=== PATIENT | male | born 1970 | race Caucasian/White ===

== ENCOUNTER 2016-07-11 13:22 | Inpatient (IN) ==
[2016-07-11] MEDS ORDERED: SODIUM CHLORIDE 0.9% 1,000 ML IV STA (14:43)
[2016-07-11 15:18] LABS: Apearance,Urine CLEAR (Clear); Bilirubin,Urine Negative (Negative); Blood, Urine Negative (Negative); Glucose,Urine (UA) Negative (Negative); Ketones,Urine Negative (Negative); Mucus,Urine Occasional /LPF (Occasional); Nitrite,Urine Negative (Negative); Protein,Urine 30 MG/DL; RBC,Urine 1 /HPF (0-4); Urine Color Yellow (Yellow); Urine Specific Gravity 1.017 (1.001-1.035); Urine Urobilinogen < 2.0 EU/DL (0.2-1.0); WBC,Urine 1 /HPF (0-6)
[2016-07-11 15:29] LABS: Basophils % 0.2 % (0.0-0.8); Eosinophils % 0.4 % (0.00-10.9); Hematocrit 42.8 VOL% (42.0-52.0); Hemoglobin 14.8 GM/DL (14.0-18.0); Immature Granulocytes % 0.3 %; Immature Granulocytes Absolute 0.03 #; Lymphocytes # 0.9 10*3/uL (1.4-4.0); Lymphocytes % 7.7 % (21.2-54.2); Mean Corpuscular HGB Conc 34.6 GM/DL (32-36); Mean Corpuscular Hemoglobin 29 PG (27-34); Mean Corpuscular Volume 84.6 FL (87-102); Mean Platelet Volume 10.2 FL (9.6-12.0); Monocytes # 1.1 10*3/uL (0.11-0.8); Monocytes % 10.1 % (1.7-12.7); Neutrophils # 9.1 10*3/uL (1.4-7.4); Neutrophils % 81.3 % (38.7-73.9); Platelet Count 266 T/CUMM (130-400); Red Blood Count 5.06 MC/CUMM (3.8-5.5); Red Cell Distribution Width 11.9 % (9.3-17.3); White Blood Count 11.2 T/CUMM (4-12)
[2016-07-11 15:41] LABS: Albumin 3.5 G/DL (3.4-5.0); Bilirubin,Total 0.8 MG/DL (0.2-1.0); Calcium 8.7 MG/DL (8.5-10.1); Potassium 3.5 MMOL/L (3.5-5.1)
--- NOTE | 2016-07-11 16:38 | CT Report ---
CT abdomen pelvis w con Indication: Right lower quadrant pain and fever. CT ABDOMEN AND PELVIS WITH CONTRAST DLP: 713 mGy*cm. One or more of the following dose reduction techniques was used: Automated exposure control, adjustment of the mA and/or kV according the patient size, or use of iterative reconstruction techniques. Comparison: None Technique: Axial CT images of the abdomen and pelvis were obtained with IV contrast; Omnipaque 350, 100 cc. Oral contrast was not administered. Abdomen: Normal heart size. Bibasilar atelectasis and mild pulmonary vascular congestion noted. Liver, gallbladder, spleen, pancreas and adrenal glands are unremarkable. The kidneys are unremarkable. No bowel obstruction. Pelvis: Appendix not identified. Significant inflammation surrounds the sigmoid colon with extensive diverticulosis and tiny pockets of air in the mesenteric fat adjacent to the sigmoid. Trace amount of free fluid is present in the deep pelvis. Rectal wall is thickened. Urinary bladder and prostate are within normal limits. Impression: Significant diverticulitis of the sigmoid colon with tiny pockets of air in the adjacent mesenteric fat. Trace amount of free fluid in the deep pelvis without peripheral enhancement, likely reactive ascites. PROCEDURE INTERPRETED AT [facility] DEPARTMENT OF RADIOLOGY Final Report Signed by: Wilber London M.D.
[2016-07-11] MEDS ORDERED: ONDANSETRON 4 MG/2 ML VIAL IV PRN (17:09)
[2016-07-11] MEDS ORDERED: ACETAMINOPHEN 325 MG TABLET PO PRN (17:09)
--- NOTE | 2016-07-11 17:10 | Emergency Department Note ---
Nasreen Taylor Brittany, am scribing for, and in the presence of, Jorge Reyes M.D. 14:50. Amy Taylor Howard T, M.D., personally performed the services described in this documentation, ascribed by Mariah Downey in my presence, and it is both accurate and complete [id number] . Arrival - Arrival Chief Complaint: Abdominal / Flank Pain Stated Complaint: abd. p ain, cramping, fever ED Nursing Triage Note: c/o abd pain with n/v/d onset sunday Mode of Arrival: Ambulatory Limitations: No Limitations Source: Patient Time Seen by Provider: 07/11/16 14:20 - History of Present Illness HPI Narrative: This si a 46 y/o white female,who presents to the ED with c/o abd pain which started 3 days ago. He has a known Hx of 1 episode of diverticulits. He states he went for a run 3 days ago and when he came home he was felling "funny". He states 4 days ago, he eat some pork that "was a little raw". He states since then he has started to run a fever and has had chills. He reports diffuse abdomen cramping but states it is worse to the left quadrant. He reports nausea , vomiting, dysuria, and flank pain, but denies any SOB, CP, hemaemesis, or vomiting. He states he had a lower scope 2 years ago and was Dx with IBS.He reports diarrhea but denies any hematochezia. He states all he really has been able to eat is liquids and soups. He states he was seen at [facility] 2 days ago. Pt has no other complaints/pain in the ED at this time. Pt has a PMHx of diverticulitis and IBS. Onset (ago): day(s) (Started 3 days ago) Consistency: constant Severity: moderate, similar to previous episodes Allergies/Adverse Reactions: Allergies Allergy/AdvReac Type Severity Reaction Status Date / Time codeine Allergy Unknown/Unable Verified 07/11/16 13:26 to obtain Penicillins Allergy Unknown/Unable Verified 07/11/16 13:26 to obtain Review of System - Review of System 12 point system: reviewed and no additional remarkable complaints except as stated - Review of System Constitutional: Present: chills, fever Cardiovascular: Absent: chest pain, dyspnea on exertion Gastrointestinal: Present: abdominal pain, nausea, diarrhea. Absent: vomiting, hematemesis, hematochezia Genitourinary male: Present: dysuria Medical,Surgical,& Family Hx - Medical History Gastrointestinal: History of: Diverticulitis/ Diverticulosis - Social History Smoking Status: Never smoker Frequency of Alcohol Use: Occasionally Type of Drug Use: None Exam Vital Signs: Vital Signs Temperature 100.1 F H 07/11/16 13:37 Pulse Rate 86 07/11/16 15:25 Respiratory Rate 18 07/11/16 15:25 Blood Pressure 136/74 07/11/16 15:25 O2 Sat by Pulse Oximetry 98 07/11/16 13:25 - General General appearance: alert, in no apparent distress - Head Head exam: Present: atraumatic, normocephalic, normal inspection - Eye Eye exam: Present: normal appearance, PERRL, EOMI. Absent: nystagmus, miosis, mydriasis - ENT ENT exam: Present: normal exam, normal oropharynx, mucous membranes moist, TM's normal bilaterally - Neck Neck exam: Present: normal inspection, full ROM, trachea midline. Absent: tenderness, meningismus, lymphadenopathy, thyromegaly - Chest Chest inspection: Present: normal inspection, symmetric chest wall rise. Absent : tenderness, rash, abscess - Respiratory Respiratory exam: Present: normal lung sounds bilaterally. Absent: rales, respiratory distress, rhonchi, stridor, wheezes - Cardiovascular Cardiovascular exam: Present: regular rate, normal rhythm, normal heart sounds. Absent: murmur, rubs, gallop, clicks - Abdominal Exam Abdominal exam: Present: soft, tenderness (Diffuse tenderness but more so to the left quardant), normal bowel sounds. Absent: distention, guarding, rebound , rigidity - Rectal Exam Rectal exam: Present: deferred - Extremities Exam Extremities exam: Present: normal inspection, full ROM, normal capillary refill. Absent: tenderness, pedal edema, joint swelling, calf tenderness - Back Exam Back exam: Present: normal inspection, full ROM. Absent: tenderness, muscle spasm, rashes - Neurological Exam Neurological exam: Present: alert, oriented X3, CN II-XII intact. Absent: motor sensory deficit - Psychiatric Psychiatric exam: Present: normal affect, normal mood. Absent: depressed, agitated, anxious, flat affect, manic - Skin Skin exam: Present: warm, dry, intact, normal color. 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 Results - Labs CBC & BMP: 07/11/16 14:05 07/11/16 14:05 Lab Results: I have reviewed the patients labs Labs: Laboratory Tests 07/11/16 07/11/16 14:05 14:43 WBC 11.2 RBC 5.06 Hgb 14.8 Hct 42.8 MCV 84.6 L MCH 29 MCHC 34.6 RDW 11.9 Plt Count 266 MPV 10.2 Neut % (Auto) 81.3 H Lymph % (Auto) 7.7 L [place] % (Auto) 10.1 Eos % (Auto) 0.4 Baso % (Auto) 0.2 Neut # (Auto) 9.1 H Lymph # (Auto) 0.9 L [place] # (Auto) 1.1 H Eos # (Auto) 0.0 Baso # (Auto) 0.0 Immature Gran % 0.3 Nucleated RBC % 0.0 Immature Gran # 0.03 Nucleated RBCs # 0.00 Urine Color Yellow Urine Appearance Clear Urine pH 6.0 Ur Specific [place] 1.017 Urine Protein 30 Urine Glucose (UA) Negative Urine Ketones Negative Urine Blood Negative Urine Nitrate Negative Urine Bilirubin Negative Urine Urobilinogen < 2.0 H Urine Leukocytes Small H Urine RBC 1 Urine WBC 1 Urine Mucus Occasional - Diagnostic Findings Procedure: CT Abdomen and Pelvis: report reviewed by me (Significant diverticulitis of the sigmoid colon with tiny pockets of air in the adjacent mesenteric fat. Trace amout of free fluid in the deep pelivs without peripheral enhancement, likely reactive ascites. ) Disposition Clinical Impression: Diverticulitis Case discussed with: patient Disposition: Disch/Xfer-[facility] Condition: Stable Time of Disposition: 17:09
[2016-07-11] MEDS ORDERED: metroNIDAZOLE 500 MG/100 ML PREMIX IV ONE (17:38)
[2016-07-11] MEDS: CIPROFLOXACIN INJ 400 MG in PREMIX 1 EACH IV SCH (17:47)
[2016-07-11] MEDS ORDERED: CIPROFLOXACIN 400 MG/200 ML PREMIX IV ONE (17:47)
[2016-07-11] MEDS: LACTATED RINGERS 1,000 ML IV SCH (18:49)
[2016-07-11] MEDS: metroNIDAZOLE INJ 500 MG in PREMIX 1 EACH IV SCH (18:50)
[2016-07-12] MEDS: metroNIDAZOLE INJ 500 MG in PREMIX 1 EACH IV SCH ×3 (02:19→20:09)
[2016-07-12] MEDS: LACTATED RINGERS 1,000 ML IV SCH ×3 (04:38→15:12)
[2016-07-12] MEDS: CIPROFLOXACIN INJ 400 MG in PREMIX 1 EACH IV SCH ×2 (04:39→17:16)
[2016-07-12 08:51] LABS: Basophils % 0.3 % (0.0-0.8); Eosinophils # 0.1 10*3/uL (0.0-0.87); Eosinophils % 1.2 % (0.00-10.9); Hematocrit 42.9 VOL% (42.0-52.0); Hemoglobin 14.9 GM/DL (14.0-18.0); Immature Granulocytes % 0.5 %; Immature Granulocytes Absolute 0.05 #; Lymphocytes # 1.3 10*3/uL (1.4-4.0); Lymphocytes % 14.7 % (21.2-54.2); Mean Corpuscular HGB Conc 34.7 GM/DL (32-36); Mean Corpuscular Hemoglobin 30 PG (27-34); Mean Corpuscular Volume 85.6 FL (87-102); Mean Platelet Volume 9.1 FL (9.6-12.0); Monocytes # 1.1 10*3/uL (0.11-0.8); Monocytes % 11.8 % (1.7-12.7); Neutrophils # 6.5 10*3/uL (1.4-7.4); Neutrophils % 71.5 % (38.7-73.9); Platelet Count 300 T/CUMM (130-400); Red Blood Count 5.01 MC/CUMM (3.8-5.5); Red Cell Distribution Width 11.9 % (9.3-17.3); White Blood Count 9.1 T/CUMM (4-12)
[2016-07-12 09:29] LABS: Calcium 8.4 MG/DL (8.5-10.1); Osmolality,Calculated 275.5 MOS/KG (273-304); Potassium 3.8 MMOL/L (3.5-5.1)
[2016-07-12] MEDS: PANTOPRAZOLE 40 MG TABLET PO SCH (09:34)
[2016-07-12] MEDS: ENOXAPARIN 40 MG/0.4 ML SYRINGE SUBCUT SCH (09:34)
--- NOTE | 2016-07-12 10:32 | General Surg History&Physical ---
Assessment and Plan (1) Diverticulitis Status: Acute Assessment and plan: Patient reports a response to IV antibiotics and bowel rest overnight. We will progress to clears today and evaluate tolerance. Hopefully medical management will provide resolution. No evidence of abscess on CT or peritonitis clinically at this time. Repeat labs and assess pain and p.o. intake tolerance in a.m. Current Visit: Yes Qualifiers: Diverticulitis bleeding: without bleeding Diverticulitis complication: without perforation or abscess History of Present Illness Chief complaint: Abd pain History of present illness: Mr. Carmichael is a 46 year old male with past medical history of diverticulitis with only 1 previous flare which did not require hospitalization who presented to the emergency department with complaints of progressive abdominal pain worse in the left lower quadrant and fevers. The patient feels this current flare has been occurring over the past 1 month as he had flares of pain which did resolve with bowel rest. He has been running a fever since Sunday on and off T- max noted 101. With progressive abdominal pain yesterday he came to the emergency department. He reported the pain is severe, sharp and nonradiating with no relieving factors. He denies significant nausea, vomiting, diarrhea, hematochezia, melena, bright red blood per rectum, or hematemesis. No history of dysphagia, changes in appetite or weight. He denies dysuria, hematuria, urinary urgency or frequency. Home Medications Medication Instructions Recorded Confirmed Type No Known Home Medications [No 07/11/16 07/11/16 History Known Home Medications] Allergies Allergy/AdvReac Type Severity Reaction Status Date / Time codeine Allergy Unknown/Unable Verified 07/11/16 13:26 to obtain Penicillins Allergy Unknown/Unable Verified 07/11/16 13:26 to obtain Medical,Surgical,& Family Hx - Medical History Gastrointestinal: History of: Diverticulitis/ Diverticulosis - Surgical History Abdominal Surgeries: Surgical HX of: Colonoscopy (2015) - Family History Family History: Reports;: Additional Family History (father had glaucoma) - Social History Smoking Status: Never smoker Frequency of Alcohol Use: Occasionally Type of Drug Use: None Marital Status: Lives With:: Spouse Functional capacity: independent ambulation Exam - Constitutional Vitals: Period Temp Pulse Resp BP Sys/Carter Pulse Ox Last 24 Hr 97.3 F-99.7 F 74-90 16-18 99-128/54-68 94-100 General appearance: no acute distress - Head Head exam: Present: normal inspection, normocephalic, atraumatic - Respiratory Respiratory exam: Present: clear to auscultation bilaterally - Cardiovascular Cardiovascular exam: Present: RRR - GI/Abdominal GI/Abdominal exam: Present: normal bowel sounds, tenderness (diffuse lower abd tenderness increased in LLQ; no reound our rigidity), soft. Absent: distended, guarding - Extremities Exam Extremities exam: Absent: calf tenderness, edema - Back Exam Back exam: Absent: CVA tenderness (L), CVA tenderness (R) - Neurological Exam Neurological exam: Present: alert, oriented X3 - Skin Skin exam: Present: normal color, warm - Constitutional Constitutional: Present: as per HPI - Cardiovascular Cardiovascular: Absent: chest pain at rest, dyspnea on exertion, orthopnea - Respiratory Respiratory: Absent: cough, wheezing - Gastrointestinal Gastrointestinal: Present: as per HPI - Genitourinary Genitourinary: Present: as per HPI - Musculoskeletal Musculoskeletal: Absent: arthralgias, joint swelling Hematologic/Lymphatic: Absent: easy bleeding, easy bruising Results - Labs CBC & BMP: 07/12/16 08:37 07/12/16 08:37 - Diagnostic Findings Procedure: CT Abdomen and Pelvis: image reviewed by me, report reviewed by me
[2016-07-13] MEDS: LACTATED RINGERS 1,000 ML IV SCH (02:57)
[2016-07-13] MEDS: metroNIDAZOLE INJ 500 MG in PREMIX 1 EACH IV SCH ×3 (02:57→20:30)
[2016-07-13] MEDS: CIPROFLOXACIN INJ 400 MG in PREMIX 1 EACH IV SCH ×2 (05:56→17:46)
[2016-07-13] MEDS: ENOXAPARIN 40 MG/0.4 ML SYRINGE SUBCUT SCH (08:31)
[2016-07-13] MEDS: PANTOPRAZOLE 40 MG TABLET PO SCH (08:31)
--- NOTE | 2016-07-13 10:03 | General Surgery Progress Note ---
Assessment and Plan (1) Diverticulitis Status: Acute Assessment and plan: Pt overall improved. Will advance diet and d/c fluids. Continue IV abx. F/u repeat labs today. Current Visit: Yes Qualifiers: Diverticulitis bleeding: without bleeding Diverticulitis complication: without perforation or abscess Subjective Patient reports: Present: no new complaints (No hematochezia or melena. ), feels better, pain is less, tolerating liquids well, voiding w/o difficulty, bowel movement, afebrile, other (Pt reports feeling much improved. ) Exam - Constitutional Vitals: Period Temp Pulse Resp BP Sys/Carter Pulse Ox Last 24 Hr 97.2 F-99.0 F 70-92 17-20 101-128/67-78 95-99 General appearance: no acute distress - Eye Eye exam: Absent: conjunctival injection, scleral icterus - Respiratory Respiratory exam: Present: clear to auscultation bilaterally - Cardiovascular Cardiovascular exam: Present: RRR - GI/Abdominal GI/Abdominal exam: Present: normal bowel sounds, tenderness (residual tenderness LLQ), soft. Absent: distended, firm, guarding, rebound - Neurological Exam Neurological exam: Present: alert, oriented X3 - Skin Skin exam: Present: normal color, warm Results - Labs CBC & BMP: 07/12/16 08:37 07/12/16 08:37 Labs: No new labs today
[2016-07-13 10:25] LABS: Basophils % 0.3 % (0.0-0.8); Eosinophils # 0.2 10*3/uL (0.0-0.87); Hematocrit 41.4 VOL% (42.0-52.0); Hemoglobin 14.1 GM/DL (14.0-18.0); Immature Granulocytes % 0.3 %; Immature Granulocytes Absolute 0.02 #; Lymphocytes # 1.2 10*3/uL (1.4-4.0); Lymphocytes % 16.6 % (21.2-54.2); Mean Corpuscular HGB Conc 34.1 GM/DL (32-36); Mean Corpuscular Hemoglobin 30 PG (27-34); Mean Corpuscular Volume 86.8 FL (87-102); Mean Platelet Volume 8.7 FL (9.6-12.0); Monocytes # 0.8 10*3/uL (0.11-0.8); Monocytes % 10.9 % (1.7-12.7); Neutrophils # 5.1 10*3/uL (1.4-7.4); Neutrophils % 69.9 % (38.7-73.9); Platelet Count 312 T/CUMM (130-400); Red Blood Count 4.77 MC/CUMM (3.8-5.5); Red Cell Distribution Width 11.9 % (9.3-17.3); White Blood Count 7.3 T/CUMM (4-12)
[2016-07-14] MEDS: metroNIDAZOLE INJ 500 MG in PREMIX 1 EACH IV SCH (03:42)
[2016-07-14] MEDS: CIPROFLOXACIN INJ 400 MG in PREMIX 1 EACH IV SCH (04:44)
[2016-07-14 07:56] VITALS: BP 124/70
[2016-07-14] MEDS: PANTOPRAZOLE 40 MG TABLET PO SCH (09:12)
[2016-07-14] MEDS: ENOXAPARIN 40 MG/0.4 ML SYRINGE SUBCUT SCH (09:12)
--- NOTE | 2016-07-14 09:36 | Discharge Summary ---
Hospital Course - Hospital Course Hospital Course: Patient is a 46-year-old male with past history of diverticulitis admitted with diverticulitis flare. Conservative management was attempted with IV ciprofloxacin and Flagyl. The patient responded very well. He was ultimately tolerating activity and oral intake without difficulty. He is also voiding and passing his bowels without difficulty. No complications to note. Patient was discharged home in good condition with oral ciprofloxacin and Flagyl for 2 weeks. He will follow Dr. Dunlap at that time. Diagnosis - Discharge Diagnosis (1) Diverticulitis Status: Acute Specialty Discharge - Follow Up or Referrals Follow up with: Hermelindo Dunlap MD [Physician] - 07/26/16 9:00 am Discharge Plan - Discharge Data Disposition: Disch To Home/Self Care Condition at Discharge: Stable Discharge Diet: other (See attached) Activity: other (No rigorous activity. ) Hygiene: may shower Driving: other (No driving while taking narcotis.) Contact your physician if you experience:: fever over 101, Difficulty voiding, Redness or swelling, Nausea/Vomiting, Shortness of breath, Bleeding, pain uncontrolled by pain medications (increase/return of previous pain) - Discharge Medications New Ciprofloxacin Tab [Cipro Tab] 500 mg PO BID #28 tablet metroNIDAZOLE TAB [Flagyl Cap/Tab] 500 mg PO TID #42 tablet - Follow Up or Referral Follow Up: Hermelindo Dunlap MD [Physician] - 07/26/16 9:00 am - Forms/Instructions Instructions: Diverticulitis Diet (DC), Diverticulitis (DC) Exam - Constitutional Vitals: Period Temp Pulse Resp BP Sys/Carter Pulse Ox Last 24 Hr 97.4 F-98.8 F 65-75 18-20 108-124/62-70 97-99 General appearance: no acute distress - Head Head exam: Present: normal inspection, normocephalic, atraumatic - Eye Eye exam: Absent: conjunctival injection, scleral icterus - Respiratory Respiratory exam: Present: clear to auscultation bilaterally - Cardiovascular Cardiovascular exam: Present: regular rate and rhythm - GI/Abdominal GI/Abdominal exam: Present: normal bowel sounds, tenderness (minimal LLQ), soft. Absent: distended, firm, guarding - Extremities Exam Extremities exam: Absent: calf tenderness, edema - Neurological Exam Neurological exam: Present: alert, oriented X3 - Psychiatric Psychiatric exam: Present: normal affect, normal mood - Skin Skin exam: Present: normal color, warm Discharge Results Labs on day of discharge: Labs from last 24 hours 07/13/16 10:18 WBC 7.3 RBC 4.77 Hgb 14.1 Hct 41.4 L MCV 86.8 L MCH 30 MCHC 34.1 RDW 11.9 Plt Count 312 MPV 8.7 L Neut % (Auto) 69.9 Lymph % (Auto) 16.6 L [place] % (Auto) 10.9 Eos % (Auto) 2.0 Baso % (Auto) 0.3 Neut # (Auto) 5.1 Lymph # (Auto) 1.2 L [place] # (Auto) 0.8 Eos # (Auto) 0.2 Baso # (Auto) 0.0 Immature Gran % 0.3 Nucleated RBC % 0.0 Immature Gran # 0.02 Nucleated RBCs # 0.00 DS: Provider Date of admission: 07/11/16 17:09 Primary care physician: . No PCP Attending physician on admission: Hermelindo Dunlap MD Consults: None Discharging clinician: Raissa Hansen PA-C
== END 2016-07-14 10:57 | disposition home or self-care (01) | DRG 392 ==
LOC: N.ED 13:22 → N.3E 17:09
PROVIDERS: ADMIT Surgery; ATTEND Surgery